=== PATIENT | female | born 1985 | race Caucasian/White ===

== ENCOUNTER 2021-09-29 13:03 | Emergency (ER) | payer OTHER ==
[2021-09-29 13:56] LABS: HEMOGLOBIN 14.1 gm/dl (12.3-15.3); RED BLOOD COUNT 4.3 M/UL (4.00-5.10); WHITE BLOOD COUNT 16.2 K/UL (4.5-11.0)
[2021-09-29 14:17] LABS: BUN/CREATININE RATIO 20 (0-10)
[2021-09-29] MEDS ORDERED: CEPHALEXIN500 MG PO (16:03)
== END 2021-09-29 16:25 | disposition home or self-care (01) ==
LOC: ER1 13:03
PROVIDERS: Family Medicine
DX: L03.011 Cellulitis of right finger (principal); R10.2 Pelvic and perineal pain; G89.29 Other chronic pain; Z90.710 Acquired absence of both cervix and uterus; F17.200 Nicotine dependence, unspecified, uncomplicated
CPT/HCPCS: 80053; 81001; 83690; 84703; 85025; 99284